=== PATIENT | female | born 1960 | race Caucasian/White ===

== ENCOUNTER 2017-11-11 16:20 | Emergency (ER) | payer OTHER ==
[~2017-11-11] VITALS: Ht 165.1 cm; Wt 71.0 kg
[~2017-11-11 16:20] MED LIST: LOPRESSOR25 MG PO; NOHOMEMEDS; ZESTRIL,PRINIVI10 M1 PO
[2017-11-11 16:49] LABS: HEMATOCRIT 41.7 % (36.0-46.0); HEMOGLOBIN 14.2 G/DL (11.9-15.5); MCH 30.5 PG (29.0-34.0); MCHC 34.1 G/DL (30.0-36.0); MCV 89.7 FL (83-99); PLATELET COUNT 260 K/uL (156-360); RBC DIS.WIDTH-SD 42.4 % (39-53); RED BLOOD COUNT 4.65 M/uL (3.80-5.20); WHITE BLOOD COUNT 11.1 K/uL (4.1-10.2)
[2017-11-11 16:59] LABS: ALBUMIN 4.7 g/dL (3.2-4.8); CHLORIDE 102 mEq/L (99-109); POTASSIUM 4.3 mEq/L (3.7-5.4); SODIUM 140 mEq/L (136-147)
[2017-11-11 17:01] LABS: GLUCOSE 99 mg/dL (70-99); TOTAL PROTEIN 7.7 g/dL (6.4-8.3)
[2017-11-11 17:03] LABS: TOTAL BILIRUBIN 0.4 mg/dL (0.0-1.0)
[2017-11-11 17:05] LABS: ALKALINE PHOSPHATASE 87 IU/L (3-129); GFR ESTIMATE (CALCULATED) > 59 mL/min/
[2017-11-11 17:06] LABS: UREA NITROGEN (BUN) 22 mg/dL (9-23)
[2017-11-11 17:07] LABS: AST (GOT) 24 IU/L (2-34)
[2017-11-11 17:08] LABS: ALT (GPT) 30 IU/L (3-49)
[2017-11-11 18:52] VITALS: BP 164/94
== END 2017-11-11 19:00 | disposition home or self-care (01) ==
LOC: EME 16:20
PROVIDERS: Nurse Practitioner Family
DX: I10 Essential (primary) hypertension (principal); R51 Headache
CPT/HCPCS: 80053; 81003; 85027; 93005; 99281; 99283